=== PATIENT | male | born 1970 | race Caucasian/White ===

== ENCOUNTER 2022-02-14 19:37 | Emergency (ER) | payer OTHER ==
[2022-02-14] MEDS ORDERED: SODIUM CHLORIDE 0.9% 1,000 ML IV STA ×2 (19:57)
[2022-02-14 20:28] LABS: Basophils # (A) 0.1 k/uL (0-0.2); Basophils % (A) 1 %; Eosinophils # (A) 0.1 k/uL (0-0.7); Eosinophils % (A) 1 %; HCT 40.5 % (39.0-53.0); HGB 13.3 gm/dL (13.0-17.5); Lymphocytes # (A) 1.7 k/uL (1.0-4.8); Lymphocytes % (A) 20 %; MCH 30.2 pg (25.0-35.0); MCHC 32.8 g/dL (31.0-37.0); Mean Platelet Volume 8.8; Monocytes # (A) 0.6 k/uL (0-1.0); Monocytes % (A) 7 %; Neutrophils % (A) 71 %; Platelet Count 165 k/uL (150-450); RDW 12.4 % (11.5-15.5); WBC 8.4 k/uL (3.8-10.6)
[2022-02-14 20:38] LABS: Albumin 4.5 g/dL (3.5-5.0); Calcium 9.3 mg/dL (8.4-10.2); Potassium 3.7 mmol/L (3.5-5.1); Total Bilirubin 0.8 mg/dL (0.2-1.3)
[2022-02-14 20:41] VITALS: RESP 16
--- NOTE | 2022-02-14 21:27 | ED ---
General Adult HPI - General Chief complaint: Syncope Stated complaint: Syncope Time Seen by Provider: 02/14/22 19:49 Source: patient, EMS Mode of arrival: EMS Limitations: no limitations - History of Present Illness Initial comments: This 50-year-old male presents with the complaint of a syncopal episode. He relates that he did fairly hard labor today for approximately 10 hours which is unusual for him. It was very hot outside. He then had a couple of beers and took a hot tub. He did drink some fluids throughout the day. He went out to eat and was drinking another beer when he apparently had a brief loss of consciousness. This occurred while he was sitting and he did not injure himself. He denies any previous similar incidents. He denies any chest pain or shortness of breath. He states that he was sweating to the point where he had during out shirts today. He denies any leg pain or swelling. He denies any other complaints or modifying factors. He did receive some IV fluids via EMS and is feeling much improved. Review of Systems ROS Statement: Those systems with pertinent positive or pertinent negative responses have been documented in the HPI. ROS Other: All systems not noted in ROS Statement are negative. General Exam - General Exam Comments Initial Comments: GENERAL: The patient is well nourished and well hydrated. VITAL SIGNS: Heart rate, blood pressure, respiratory rate reviewed as recorded in nurse's notes. EYES: Pupils are round and reactive. Extraocular movements are intact. No conjunctival / lid redness or swelling. ENT: No external evidence of injury, swelling, or ecchymosis. Airway is patent. Throat is clear. NECK: Nontender. No swelling or evidence of injury. No subcutaneous emphysema. Trachea is midline. No thyroid mass. HEART: Regular rate and rhythm. Good peripheral pulses. LUNGS/CHEST: Breath sounds clear and equal bilaterally. No rales, rhonchi, or wheezes. No ecchymosis, subcutaneous emphysema, or tenderness. ABDOMEN: Abdomen soft without tenderness. No palpable masses or organomegaly. No peritoneal signs. No abdominal wall swelling or ecchymosis. EXTREMITIES: No extremity tenderness. Normal muscle tone and function. No thoracolumbar tenderness. NEUROLOGIC: Sensation is grossly intact. Cranial nerve exam reveals face is symmetrical, tongue is midline, speech is clear. SKIN: No abrasions or ecchymosis is noted. No induration or masses noted. PSYCHIATRIC: Alert and oriented. Appropriate behavior and judgment. Limitations: no limitations Course Vital Signs 02/14/22 02/14/22 02/14/22 19:47 19:49 21:51 Temperature 98.6 F Pulse Rate 57 L 64 Pulse Rate [ 57 L [employer] ] Respiratory 16 16 Rate Blood Pressure 108/69 101/65 O2 Sat by Pulse 99 100 Oximetry Medical Decision Making - Medical Decision Making The patient was seen and examined. All diagnostics were reviewed. His renal function studies are slightly elevated with a creatinine of 1.65. He relates a history of having only one kidney. He had a kidney removed due to renal cell cancer. His creatinine usually runs approximately 1.47. It is slightly up from this but states that he often times is been up to 1.7. Remainder of labs are essentially within normal limits. EKG shows a sinus bradycardia at a rate of 54. There is no acute ST-T wave changes noted. The NH intervals 186, QRS duration is 122, and the QTc interval is 394. He does receive ample fluid hydration. He is feeling markedly improved on recheck. He states that he is feeling back to normal at this time. He appears to be well clinically. It is felt as though he is stable for discharge home. He is counseled in regards to his condition and leaves in no distress. Also follow-up recommended. - Lab Data Result diagrams: 02/14/22 20:17 02/14/22 20:17 Lab Results 02/14/22 02/14/22 02/14/22 Range/Units 20:17 20:17 20:17 WBC 8.4 (3.8-10.6) k/uL RBC 4.40 (4.30-5.90) m/uL Hgb 13.3 (13.0-17.5) gm/dL Hct 40.5 (39.0-53.0) % MCV 92.0 (80.0-100.0) fL MCH 30.2 (25.0-35.0) pg MCHC 32.8 (31.0-37.0) g/dL RDW 12.4 (11.5-15.5) % Plt Count 165 (150-450) k/uL MPV 8.8 Neutrophils % 71 % Lymphocytes % 20 % Monocytes % 7 % Eosinophils % 1 % Basophils % 1 % Neutrophils # 6.0 (1.3-7.7) k/uL Lymphocytes # 1.7 (1.0-4.8) k/uL Monocytes # 0.6 (0-1.0) k/uL Eosinophils # 0.1 (0-0.7) k/uL Basophils # 0.1 (0-0.2) k/uL Sodium 138 (137-145) mmol/L Potassium 3.7 (3.5-5.1) mmol/L Chloride 103 (98-107) mmol/L Carbon Dioxide 21 L (22-30) mmol/L Anion Gap 14 mmol/L BUN 22 H (9-20) mg/dL Creatinine 1.65 H (0.66-1.25) mg/dL Est GFR (CKD-EPI)AfAm 54 (>60 ml/min/1.73 sqM) Est GFR (CKD-EPI)NonAf 47 (>60 ml/min/1.73 sqM) Glucose 146 H (74-99) mg/dL Calcium 9.3 (8.4-10.2) mg/dL Total Bilirubin 0.8 (0.2-1.3) mg/dL AST 30 (17-59) U/L ALT 25 (4-49) U/L Alkaline Phosphatase 65 (38-126) U/L Troponin I <0.012 (0.000-0.034) ng/mL Total Protein 7.0 (6.3-8.2) g/dL Albumin 4.5 (3.5-5.0) g/dL Disposition Clinical Impression: Syncope, Dehydration, Heat exhaustion, History of renal cell cancer, History of nephrectomy Disposition: HOME SELF-CARE Condition: Good Instructions (If sedation given, give patient instructions): Dehydration (ED), Heat Exhaustion (ED), Syncope (ED) Is patient prescribed a controlled substance at d/c from ED?: No Referrals: Nonstaff,Physician [Primary Care Provider] - 1-2 days Time of Disposition: 21:27
[2022-02-14 21:52] VITALS: BP 101/65; PULSE 64; TEMP 98.6
== END 2022-02-14 21:57 | disposition home or self-care (01) ==
LOC: EC 19:37
DX: T67.5XXA Heat exhaustion, unspecified, initial encounter (principal); R55 Syncope and collapse; E86.0 Dehydration; R00.1 Bradycardia, unspecified; Z85.528 Personal history of other malignant neoplasm of kidney; Z90.5 Acquired absence of kidney; X30.XXXA Exposure to excessive natural heat, initial encounter
CPT/HCPCS: 36415; 80053; 84484; 85025; 93005; 96360; 99284